=== PATIENT | male | born 1965 | race Caucasian/White ===

== ENCOUNTER → 2024-01-25 13:38 | Outpatient (REF) | payer OTHER, SELFPAY | LOC: RAD 13:38 | PROVIDERS: ATTENDING PHYSICIAN Family Medicine | DX: F51.01 Primary insomnia (principal); M89.8X9 Other specified disorders of bone, unspecified site; M79.672 Pain in left foot | CPT/HCPCS: 73630 ==

== ENCOUNTER → 2024-02-15 08:52 | Outpatient (REF) | payer OTHER, SELFPAY | LOC: HWRAD 08:52 | PROVIDERS: ATTENDING PHYSICIAN Family Medicine | DX: M79.609 Pain in unspecified limb (principal) | CPT/HCPCS: 76882 ==

== ENCOUNTER → 2024-02-25 09:27 | Outpatient (REF) | payer OTHER, SELFPAY | LOC: RAD 09:27 | PROVIDERS: ATTENDING PHYSICIAN Family Medicine | DX: M25.561 Pain in right knee (principal) | CPT/HCPCS: 93971 ==